=== PATIENT | male | born 1945 | race Asian ===

== ENCOUNTER → 2020-12-19 | Outpatient (CLI) | payer BC ==
--- NOTE | 2020-12-20 13:01 | CARD ---
MR#: [id number] Date of Study: 12/19/2020 Ordering Physician: STEPHANIE LEMUS, Referring Physician: STEPHANIE LEMUS Tech: Candida Dumont, RDCS APPROVED REPORT INDICATION Abnormal EKG RISK FACTORS Hypertension Reason : Abnormal EKG PROCEDURE The patient underwent an Exercise Stress Test using the Dhruv Protocol. Blood pressure, heart rate, a nd EKG were monitored. An Echocardiogram was performed by calibration laboratory technician in four stages in quad fashion. At peak stress four se lected images were obtained and placed side by side with resting images for comparison. STRESS ECHO FINDINGS The resting Echocardiogram showed normal left ventricular systolic contractility with an estimated Ej ection Fraction of about 55 %. The Stress Echocardiogram left ventricular systolic contractility has an estimated Ejection Fraction of about 60-65%. Test Type: Exercise Stress Nurse/Tech: ANDERSON Foy Test Indications: ABNORMAL EKG Cardiac History and Allergies: SEE EMR Medications: SEE EMR Medical History: SEE EMR Resting ECG: SR Resting Heart Rate: 64 bpm Resting Blood Pressure: 170/70mmHg Pretest Chest Pain: No chest pain Nurse/Tech Notes S1,S2, LUNGS CTA, DENIED CP OR SOA. PT TOOK BETA ARIANA 12/19/20 @ 0900. Stress Symptoms PT DENIED CHEST PAIN OR SOA. PT STOPPED ONCE TARGET HEART RATE REACHED. PT HAD DIFFICULTY WALKING ON THE TREADMILL. POST EXERCISE Reason for Termination: Reached target heart rate Target HR: 123 Max HR: 140 bpm 97% of Maximum Predicted HR: 145 bpm Exercise duration: 3:18 min:sec, 1 Stage Exercise capacity: 4.6METs Max Blood Pressure: 213/73mmHg Blood Pressure response to exercise: Normal blood pressure response during stress. Heart Rate response to exercise: WNL Chest Pain: No. Arrhythmia: No. ST Change: No. EKG RETURNED TO BASELINE INTERPRETATION Stress EKG Conclusion: The resting EKG showed a sinus rhythm with minimal nonspecific ST segment perkins ges. The stress EKG showed no significant change from baseline. No EKG evidence of stress-induced ischemia. Preliminary Notification Critical Value: No <Conclusion> Limited exercise tolerance. No reported chest pain with exertion. No EKG evidence of stress-induced ischemia. Baseline echocardiogram showed low normal LV systolic function. Stress echocardiogram showed no regional wall motion abnormalities and appropriately increased systol ic function. Low to moderately low risk treadmill stress echo. Signed by : Matt Reyes MD Electronically Approved : 12/20/2020 13:00:27
== END ==
LOC: ECHO 12:34
PROVIDERS: ATTEND Internal Medicine Cardiovascular Disease
DX: R94.31 Abnormal electrocardiogram [ECG] [EKG] (principal)
CPT/HCPCS: 93017; 93350